=== PATIENT | male | born 1945 | race Caucasian/White ===

== ENCOUNTER 2016-08-20 13:08 | Day surgery (SDC) | payer MEDICARE ==
[~2016-08-20] VITALS: Ht 177.8 cm; Wt 86.2 kg
[~2016-08-20 13:08] MED LIST: 0.9% Sodium Chloride 1,000 ML IV SCH; ASPI-973 PO; GLIM2TAB2 PO; LISI1TAB11 PO; METF500T4 PO; OMEP20TA86 PO; SIMV40TA5 PO; Sodium Chloride LOK Flush 10 mL Syringe IV PRN; fentaNYL-PF 50 mCg/mL 2 mL Inj IVPUSH PRN
[2016-08-20 15:49] VITALS: BP 126/87; PULSE 83; RESP 12; O2SAT 96
[2016-08-20 16:53] VITALS: BP 116/76; PULSE 82; RESP 16; O2SAT 94
[2016-08-20 17:03] VITALS: BP 131/84; PULSE 82; RESP 16; O2SAT 93
[2016-08-20 17:12] VITALS: BP 121/84; PULSE 83; RESP 16; O2SAT 94
--- NOTE | 2016-08-20 20:53 | ENDO ---
[address] [address] ENDOSCOPY PROCEDURE PATIENT: ANDREA WEISS : 1945 MR#: [id number] ADMIT: 08/20/2016 JOB ID: [id number] DATE: 08/20/2016 PROCEDURE: Colonoscopy. INDICATIONS: Screening. Patient's ASA classification is II. Mallampati score is II. MEDICATIONS: Versed 5 mg, fentanyl 100 mcg. INSTRUMENT USED: PCF-H180AL. Prep quality was poor. PROCEDURE DETAILS: After informed consent was obtained, the patient was brought into the GI suite, where he was placed on oxygen via nasal cannula and monitored with continuous pulse oximeter, telemetry, and blood pressure monitoring. A time-out was performed. Then, he was placed in a left lateral decubitus position and medications were administered for sedation. Digital rectal exam was performed, which was unremarkable. The colonoscope was then inserted into the rectum and advanced under direct visualization to the distal ascending colon. Beyond this point, we could not advance the scope as the prep was poor and it was semi-solid stool coating the colon. At this point, the colonoscope was withdrawn. Retroflexion was performed in the rectum. FINDINGS: Poor prep. RECOMMENDATIONS: Repeat colonoscopy with a two-day prep. COMPLICATIONS: None. ESTIMATED BLOOD LOSS: Zero.
== END 2016-08-20 23:59 | disposition home or self-care (01) ==
LOC: END 13:08
PROVIDERS: ATTEND Internal Medicine Gastroenterology
DX: Z12.11 Encounter for screening for malignant neoplasm of colon (principal); E11.65 Type 2 diabetes mellitus with hyperglycemia; I10 Essential (primary) hypertension; E78.4 Other hyperlipidemia; K21.9 Gastro-esophageal reflux disease without esophagitis; Z79.84 Long term (current) use of oral hypoglycemic drugs; Z79.82 Long term (current) use of aspirin
CPT/HCPCS: G0121; G0500; J2250; J3010; J7030

== ENCOUNTER → 2016-10-04 | Day surgery (SDC) | payer MEDICARE ==
[~2016-10-04] VITALS: Ht 177.8 cm; Wt 85.7 kg
[~2016-10-04] MED LIST changes: +0.9% Sodium Chloride 1,000 ML IV PRN; -0.9% Sodium Chloride 1,000 ML IV SCH
[2016-10-04 10:59] VITALS: BP 125/82; PULSE 58; RESP 15; O2SAT 95
[2016-10-04 12:26] VITALS: BP 101/70; PULSE 70; O2SAT 95
[2016-10-04 12:40] VITALS: BP 113/76; PULSE 81; O2SAT 96
--- NOTE | 2016-10-05 00:21 | ENDO ---
[address] [address] ENDOSCOPY PROCEDURE PATIENT: ANDREA WEISS : 1945 MR#: [id number] ADMIT: 10/04/2016 JOB ID: [id number] DATE OF PROCEDURE: 10/04/2016 PROCEDURE: Colonoscopy. INDICATION: Screening. Patient's ASA classification is II. Mallampati score is 2. MEDICATIONS: 1. Versed 6 mg. 2. Fentanyl 125 mcg. INSTRUMENT USED: PCF-H180AL. PREPARATION QUALITY: Was fair. PROCEDURE DETAILS: After informed consent was obtained, the patient was brought to the GI suite, where he was placed on oxygen via nasal cannula and monitored with continuous pulse oximeter, telemetry, and blood pressure monitoring. A time-out was performed. Then, he was placed in the left lateral decubitus position and medications were administered for sedation. Digital rectal exam was performed which was unremarkable. The colonoscope was then inserted into the rectum and advanced under direct visualization to the cecum, which was identified by the presence of the ileocecal valve and appendiceal orifice. Once the cecum was reached, the colonoscope was withdrawn back to the rectum, mucosa and lumen were examined. In the rectum, retroflexion was performed. Following retroflexion, remaining air in the rectum was suctioned and procedure was completed. FINDINGS: In the sigmoid colon, there was a diminutive polyp that was removed with cold biopsy forceps. IMPRESSION: Sigmoid polyp. RECOMMENDATIONS: Repeat colonoscopy pending polyp pathology results. COMPLICATIONS: None. ESTIMATED BLOOD LOSS: Less than 5 mL.
--- NOTE | 2016-10-05 13:56 | PATH ---
SURGICAL PATHOLOGY Attending Physician:Danny Narvaez CASE STATUS: Signed Out PATIENT NAME: ANDREA WEISS PID: [id number] : 1945 DATE COLLECTED:10/04/2016 18:46 SPECIMEN: Colon, Polyp CLINICAL HISTORY: 1). SIGMOID POLYP X 1 FINAL DIAGNOSIS: 1.SIGMOID POLYP, BIOPSY: - HYPERPLASTIC POLYP. ICD10 D12.6 NOTE: As part of a routine machined parts quality inspector, Dr. Chicho Swenson has also reviewed this case and agrees with the diagnosis. GROSS DESCRIPTION: The specimen is received in one formalin filled container labeled with the patient's name, sublabeled "sigmoid polyp" and consists of 2 portions of tissue which aggregate to 0.2 x 0.2 x 0.2 CM. The specimen is entirely submitted in one cassette. 10/04/2016DC MICRO DESCRIPTION: See diagnosis. ICD-9 CODES: CPT CODES: 1: 15270 Electronically Signed Out Kev Malcolm MD [facility] [address], [place] [address] Technical component performed at [facility], [facility] [address], [address]
== END | disposition home or self-care (01) ==
LOC: END 00:03
PROVIDERS: ATTEND Internal Medicine Gastroenterology
DX: Z12.11 Encounter for screening for malignant neoplasm of colon (principal); K63.5 Polyp of colon; Z80.0 Family history of malignant neoplasm of digestive organs; E11.65 Type 2 diabetes mellitus with hyperglycemia; I10 Essential (primary) hypertension; E78.5 Hyperlipidemia, unspecified; K21.9 Gastro-esophageal reflux disease without esophagitis; Z79.84 Long term (current) use of oral hypoglycemic drugs; Z79.82 Long term (current) use of aspirin
CPT/HCPCS: 45380; 99153; G0500; J2250; J3010; J7030